=== PATIENT | female | born 1990 | race African-American/Black ===

== ENCOUNTER 2024-12-10 16:40 | Emergency (ER) | payer MEDICAID ==
[~2024-12-10] VITALS: Ht 154.9 cm; Wt 68.0 kg
[2024-12-10] MEDS ORDERED: IOHEXOL-350 100 ML VIAL IV ONE (17:23)
[2024-12-10] MEDS ORDERED: CT SWABBABLE VALVE TRANS SET 1 EA INFUS.SET MC ONE (17:24)
[2024-12-10 17:38] LABS: BASOPHILS # (AUTO) 0.1 K/uL (0.0-0.2); BASOPHILS % (AUTO) 0.7 % (0.0-2.0); EOSINOPHILS % (AUTO) 0.3 % (0.0-6.0); HEMATOCRIT 35 % (33-45); HEMOGLOBIN 11.4 g/dL (11.5-14.8); LYMPHOCYTES # (AUTO) 3.7 K/uL (0.8-4.8); LYMPHOCYTES % (AUTO) 48.6 % (20.0-44.0); MEAN CORPUSCULAR HEMOGLOBIN 21 PG (26.0-33.0); MEAN CORPUSCULAR HGB CONC 33 g/dl (31.0-36.0); MEAN CORPUSCULAR VOLUME 64 fL (82-100); MONOCYTES # (AUTO) 0.4 K/uL (0.1-1.30); MONOCYTES % (AUTO) 5.9 % (2.0-12.0); NEUTROPHILS # (AUTO) 3.4 K/uL (1.8-8.9); NEUTROPHILS % (AUTO) 44.5 % (43.0-81.0); PLATELET COUNT (AUTO) 423 K/uL (150-450); RED BLOOD CELL COUNT(AUTO) 5.37 MIL/uL (4.0-5.2); RED CELL DISTRIBUTION WIDTH 17.2 % (11.5-15.0); WHITE BLOOD COUNT (AUTO) 7.5 K/uL (4.3-11.0)
[2024-12-10 17:46] LABS: CALCIUM, SERUM 8.7 mg/dL (8.5-10.1); CREATININE 0.7 mg/dL (0.6-1.3); POTASSIUM 4.6 mmol/L (3.5-5.1)
[2024-12-10] MEDS ORDERED: ACETAMINOPHEN ES 500 MG TABLET ONE (18:50)
[2024-12-10] MEDS ORDERED: METOCLOPRAMIDE HCL 10 MG/2 ML VIAL ONE (18:50)
[2024-12-10] MEDS: METOCLOPRAMIDE HCL 10 MG/2 ML VIAL IV ONE (18:56)
[2024-12-10] MEDS: IV NS 0.9% 1,000 ML BAG IV ONE (18:56)
[2024-12-10] MEDS: ACETAMINOPHEN ES 500 MG TABLET PO ONE (18:56)
[2024-12-10 19:32] LABS: BAND % (MANUAL) 1 % (0.0-5.0); BASOPHILS % (MANUAL) 0 % (0.0-2.0); EOSINOPHILS % (MANUAL) 0 % (0-4); LYMPHOCYTES % (MANUAL) 47 % (16-48); MONOCYTES % (MANUAL) 7 % (0-11.0); NEUTROPHILS % (MANUAL) 46 (42-76); PLATELET ESTIMATE ADEQUATE
[2024-12-10 19:33] LABS: ANISOCYTOSIS 1+
[2024-12-10 20:00] VITALS: BP 112/102; TEMP 98.3; O2SAT 95
== END 2024-12-10 20:01 | disposition home or self-care (01) ==
LOC: ER 16:44
DX: H53.2 Diplopia (principal); M54.2 Cervicalgia; R11.0 Nausea; Z88.0 Allergy status to penicillin; Z20.822 Contact with and (suspected) exposure to COVID-19
CPT/HCPCS: 99285; 70498; 96374; 96361; 87426; 87804 ×2; 70496; 85025; 80048; 36415; 87420; 84702; 85007; J2765; J7030; Q9967; A4223